=== PATIENT | male | born 2005 | race Caucasian/White ===

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

== ENCOUNTER 2025-09-02 22:59 | Emergency (ER) | payer SELFPAY ==
[2025-09-02] MEDS: Lidocaine 2% Viscous Solution 15 ML UD PO ONE (23:28)
[2025-09-02] MEDS: Benzocaine 20% Topical Spray UD MUCMEM ONE (23:28)
[2025-09-02] MEDS: Acetaminophen/HYDROcodone 325-10 MG Tab PO ONE (23:28)
[2025-09-02] MEDS: Amoxicillin/Clavulanate K 875-125 MG Tab PO ONE (23:29)
[2025-09-02 23:59] VITALS: BP 120/62; PULSE 74
== END 2025-09-02 23:57 | disposition home or self-care (01) ==
LOC: MW.ED 22:59
DX: K02.9 Dental caries, unspecified (principal); K05.10 Chronic gingivitis, plaque induced; Z79.899 Other long term (current) drug therapy
CPT/HCPCS: 99282; A9270; J3490; 99284

== ENCOUNTER 2025-09-06 20:39 | Emergency (ER) | payer SELFPAY ==
[2025-09-06] MEDS: Acetaminophen/HYDROcodone 325-10 MG Tab PO STA (21:31)
[2025-09-06] MEDS: Amoxicillin/Clavulanate K 875-125 MG Tab PO ONE (21:31)
[2025-09-06 22:10] VITALS: BP 123/80; PULSE 84
== END 2025-09-06 22:10 | disposition home or self-care (01) ==
LOC: MW.ED 20:39
DX: K02.9 Dental caries, unspecified (principal)
CPT/HCPCS: 99282; A9270

== ENCOUNTER 2025-09-09 15:07 | Emergency (ER) | payer SELFPAY ==
[2025-09-09 15:29] VITALS: BP 131/70; PULSE 87
[2025-09-09] MEDS: Lidocaine 2% Viscous Solution 15 ML UD PO ONE (17:01)
[2025-09-09] MEDS: Benzocaine 20% Topical Spray UD MUCMEM ONE (17:01)
== END 2025-09-09 17:09 | disposition home or self-care (01) ==
LOC: MW.ED 15:07
DX: K08.89 Other specified disorders of teeth and supporting structures (principal); J45.909 Unspecified asthma, uncomplicated; Z79.899 Other long term (current) drug therapy; Z75.3 Unavailability and inaccessibility of health-care facilities
CPT/HCPCS: 99282; A9270; J3490; 99283